=== PATIENT | female | born 1985 ===

== ENCOUNTER 2016-09-25 13:23 | Emergency (ER) | payer MEDICAID, OTHER ==
[2016-09-25 13:23] VITALS: BMI 25.4
[2016-09-25 13:30] VITALS: BP 98/64; PULSE 82; RESP 20; TEMP 97.4; O2SAT 98
--- NOTE | 2016-09-25 13:46 | C.PDOC ---
History Of Present Illness Patient is a 30 y/o female, 13 weeks , that presents to the ED for evaluation of constant back pain radiating to the abdomen that started 3 days ago. Pt states that pain is worse when sitting. Denies having this type of pain before, and denies taking any pain medications. Otherwise, denies any vaginal bleeding, vaginal discharge, dysuria, fever, chills, nausea, vomiting, or any other associated symptoms at this time. Time Seen by Provider: 09/25/16 13:46 Chief Complaint (Nursing): Abdominal Pain History Per: Patient History/Exam Limitations: no limitations Onset/Duration Of Symptoms: Days (3) Current Symptoms Are (Timing): Still Present Location Of Pain/Discomfort: Diffuse Radiation Of Pain To:: Back Quality Of Discomfort: "Pain" Associated Symptoms: Back Pain. denies: Fever, Chills, Nausea, Vomiting, Diarrhea, Loss Of Appetite, Chest Pain, Constipation, Urinary Symptoms Exacerbating Factors: None Alleviating Factors: None Recent travel outside of the [place]: No Additional History Per: Patient Abnormal Vaginal Bleeding: No Past Medical History Reviewed: Historical Data, Nursing Documentation, Vital Signs Vital Signs: Last Vital Signs Temp 97.4 F L 09/25/16 13:27 Pulse 82 09/25/16 13:27 Resp 20 09/25/16 15:04 BP 98/64 L 09/25/16 13:27 Pulse Ox 98 09/25/16 14:56 - [facility] Procedures DELIVERY OF PRODUCTS OF CONCEPTION, EXTERNAL APPROACH (12/15/15) MONITORING OF POC, CARDIAC RATE, TROLLEY WORKER APPROACH (12/15/15) REPAIR OB LACERATION NEC (06/27/14) Family History: States: Unknown Family Hx - Social History Hx Alcohol Use: No Hx Substance Use: No - Immunization History Hx Tetanus Toxoid Vaccination: No Hx Influenza Vaccination: No Hx Pneumococcal Vaccination: No Review Of Systems Except As Marked, All Systems Reviewed And Found Negative. Constitutional: Negative for: Fever, Chills Gastrointestinal: Positive for: Abdominal Pain. Negative for: Nausea, Vomiting , Diarrhea, Constipation Genitourinary: Negative for: Dysuria, Frequency, Incontinence, Hematuria, Vaginal Discharge, Vaginal Bleeding Musculoskeletal: Positive for: Back Pain Neurological: Negative for: Weakness, Numbness Physical Exam - Physical Exam Appears: Non-toxic, No Acute Distress Skin: Normal Color, Warm, Dry Head: Atraumatic, Normacephalic Eye(s): bilateral: Normal Inspection, EOMI Neck: Normal ROM, Supple Chest: Symmetrical, No Tenderness Cardiovascular: Rhythm Regular, No Murmur Respiratory: Normal Breath Sounds, No Rales, No Rhonchi, No Wheezing Gastrointestinal/Abdominal: Soft, Tenderness (non-focal, mildly diffuse), No Guarding, No Rebound Back: No CVA Tenderness, No Vertebral Tenderness, No Paraspinal Tenderness Extremity: Normal ROM Neurological/Psych: Oriented x3, Normal Speech, Normal Cognition ED Course And Treatment O2 Sat by Pulse Oximetry: 98 (on RA) Pulse Ox Interpretation: Normal Progress Note: Labs ordered and reviewed. Patient was given Tylenol in the ER. Medical Decision Making Medical Decision Making: Bedside ultrasound performed, showing positive movement, and heart rate of 167 bpm. pt appears well, no distress, benign exam disc plan for f/u w obgyn on , return if worse Disposition - Disposition Disposition: HOME/ ROUTINE Disposition Time: 14:56 Condition: GOOD Additional Instructions: Please follow up with your OBGYN doctor. Take tylenol as directed for pain. Return to the ER for any worsening symptoms or for any other concerns. Instructions: Abdominal Pain in (ED) Forms: Gen Discharge Inst Indonesian Print Language: SLOVENIAN - Clinical Impression Clinical Impression: Abdominal pain in - Scribe Statement The provider has reviewed the documentation as recorded by the Rosina Pham Provider Attestation: All medical record entries made by the Rosina were at my direction and personally dictated by me. I have reviewed the chart and agree that the record accurately reflects my personal performance of the history, physical exam, medical decision making, and the department course for this patient. I have also personally directed, reviewed, and agree with the discharge instructions and disposition.
[2016-09-25 14:40] LABS: RBC URINE 1 /hpf (0-3); URINE BACTERIA RARE (<OCC); URINE BILIRUBIN NEGATIVE (NEGATIVE); URINE BLOOD NEGATIVE (NEGATIVE); URINE COLOR Yellow (YELLOW); URINE GLUCOSE (UA) NORMAL (Normal); URINE KETONE TRACE mg/dL (NEGATIVE); URINE LEUKOCYTE ESTERASE TRACE Leu/uL (Negative); URINE PROTEIN NEGATIVE (NEGATIVE); URINE UROBILINOGEN NORMAL mg/dL (0.2-1.0); WBC URINE 4 /hpf (0-5)
== END 2016-09-25 15:04 | disposition home or self-care (01) ==
LOC: C.ER 13:23
DX: O26.91 Pregnancy related conditions, unspecified, first trimester (principal); Z3A.13 13 weeks gestation of pregnancy; R10.9 Unspecified abdominal pain

== ENCOUNTER 2017-02-25 19:41 | Emergency (ER) | payer MEDICAID, OTHER ==
[2017-02-25 19:57] VITALS: BMI 30.1
--- NOTE | 2017-02-25 20:19 | OBHP ---
Datetime: 02/25/2017 20:15 IP Adm Impression: , intrauterine Admit Comment, IP Provider: at 34+weeks jose with c/o ctxs started at 12 noon, irrg, 09/08,no vb, lof,+fm.no dysuria.pt was admitted [facility] for pylonephritis. obhx 3 x pmh de med pnv all nkda psh de soch den ve closed a/p at 34+weeks ctxs ua cont aureliano and efm ivf cont close observation Pelvic Type - PN: Adequate Extremities - PN: Normal Abdomen - PN: Normal Back - PN: Normal Breast - PN: Normal Lungs - PN: Normal Heart - PN: Normal Thyroid - PN: Normal Neurologic - PN: Normal HEENT - PN: Normal General - PN: Normal FHR - Baseline A Provider: 130 Contraction Comments Provider: irrg Comments, ACOG Physical Exam: gravid,non tender ext no edema,no calf ten ve closed EGA AdmitDate IP: 34.4 Vital Signs Provider: Reviewed; Within Normal Limits IP Chief Complaint: Uterine contractions NICHD Variability Prov Fetus A: Moderate 6-25bpm NICHD Accel Fetus A IP Provider: [id number] FHR Category Provider Fetus A: Category I Dilatation, Provider: 0 Effacement, Provider: 0 Station, Provider: -3 Genitourinary Exam: Normal DTRs - PN: Normal
[2017-02-25 20:23] LABS: URINE BACTERIA FEW (<OCC); URINE BILIRUBIN NEGATIVE (NEGATIVE); URINE BLOOD NEGATIVE (NEGATIVE); URINE COLOR Straw (YELLOW); URINE GLUCOSE (UA) NORMAL (Normal); URINE KETONE NEGATIVE (NEGATIVE); URINE LEUKOCYTE ESTERASE NEG Leu/uL (Negative); URINE PROTEIN NEGATIVE (NEGATIVE); URINE UROBILINOGEN NORMAL mg/dL (0.2-1.0); WBC URINE < 1 /hpf (0-5)
--- NOTE | 2017-02-25 20:40 | OBDCSUM ---
Datetime: 02/25/2017 20:39 Discharged to, Provider: Home Follow up at, Provider: tuesday Follow up in weeks, Provider: clinic Disch Activity Restrictions: No sexual activity; Nothing in vagina - [place], tampons, douche Discharge Comment, Provider: dc home ptl given po hyr f/u in clinic on tuesday Discharge Diagnosis Prov Other: 34week nst ctxs
--- NOTE | 2017-02-25 20:41 | OBHP ---
Datetime: 02/25/2017 20:15 Admit Comment, IP Provider: at 34+weeks jose with c/o ctxs started at 12 noon, irrg, 09/08,no vb, lof,+fm.no dysuria.pt was admitted [facility] for pylonephritis. obhx 3 x pmh de med pnv all nkda psh de soch den ve closed a/p at 34+weeks ctxs ua cont aureliano and efm ivf cont close observation 20.45 pt was seen feels better. ua neg dc home ptl given po hyr f/u in clinic on tuesday EGA AdmitDate IP: 34.4
[2017-02-26 02:25] VITALS: BP 100/59; PULSE 80; RESP 20; TEMP 98.2
== END 2017-02-25 21:35 | disposition home or self-care (01) ==
LOC: C.EROB 19:41
DX: O47.03 False labor before 37 completed weeks of gestation, third trimester (principal); Z3A.34 34 weeks gestation of pregnancy

== ENCOUNTER 2017-03-17 23:56 | Inpatient (IN) | payer MEDICAID ==
--- NOTE | 2017-03-18 00:05 | OBHP ---
Datetime: 03/07/2017 08:25 FHR - Baseline A Provider: 130 Contraction Comments Provider: irrg NICHD Variability Prov Fetus A: Moderate 6-25bpm NICHD Accel Fetus A IP Provider: 15X15 FHR Category Provider Fetus A: Category I Dilatation, Provider: 3 Effacement, Provider: 70 Station, Provider: -2 Datetime: 03/07/2017 08:23 Membranes, Provider: Intact Vital Signs Provider: Reviewed; Within Normal Limits NICHD Decel Fetus A IP Provider: None Datetime: 03/07/2017 00:01 Presentation-Admit: Vertex Gestation - Est Wks by US: 36.0 Datetime: 03/06/2017 15:50 Admit Comment, IP Provider: Patient is a 31 yo at 35 weeks and 6 days with LMP (06/28/2016) a nd an CAM (04/03/2017) by LMP, who presents with complaints of lower abdominal pressure and lower back pain and some vaginal spotting. Patient endorses movement and contractions and denies leakage of fluid and heavy vaginal bleeding. issues: Denies OB Hx: G1: 11/09/2008, male, , 6lbs, 39 weeks (+) G2: 06/28/2014, male, , 5lbs, 7oz, 37 weeks 2 days G3: 12/15/2015, male, , 5lbs, 7oz, 36 weeks 4 days G4: Current [employer] Hx: Menarche: 16 [place]: /3-4 days Denies hx of fibroids and ovarian cyst Denies hx of STDs and abnormal pap smear PMHx: Denies PSHx: Denies FHx: Denies Medications: PNV Allergies: NKDA Social Hx: Lives with and 3 sons. Denies hx of tobacco, illicit drugs and ETOH use VS: BP: 115/64, HR: 64 Physical Examination: See above A/P:31 yo at 35 weeks and 6 days with LMP (06/28/2016) and an CAM (04/03/2017), presents wit h complaints of lower abdominal pressure and lower back pain and some vaginal spotting. 1. Stable, Afebrile 2. EFM and [place] 3. Speculum exam: Negative pooling, possible false positive nitrazine test (Vaginal spotting), cer vicits 4. LR @125mls/hr 5. f/u UA 6. Further management to be determined by next cervical examination 7. Plans discussed with attending Shiv Reyes DO, PGY-1 Attending Note: patient seen, evaluated and examined by me with the Resident. I agree with the jayda jay as documented. Comments, ACOG Physical Exam: Gen: AAOx3, NAD Cardio: RRR, Normal S1, S2 Pulm: CTA bilaterally Abdomen: Soft, gravid, fundal height: 35 weeks Ext: No edema, no cyanosis and no clubbing SVE: 1-2cm/30%/-3 EFM: 140, + ACCELS, - DECELS TOCO: Irregular Datetime: 02/25/2017 20:15 EGA AdmitDate IP: 34.4
[2017-03-18] MEDS ORDERED: Penicillin G 5 Million Unit Vial IVPB ONE ×2 (00:14→00:57)
[2017-03-18] MEDS ORDERED: Lactated Ringer's 1,000 ML IV SCH (00:15)
--- NOTE | 2017-03-18 00:27 | OBADHP ---
Datetime: 03/18/2017 00:20 Admit Comment, IP Provider: chief complaint-contractions HPI at 37.4 wga with c/o spotting at 9.30pm and then contractions since 10 am.Patient denies nuasea, vomiting, chets pain, shortness of breath or loss of fluid course - [facility]; hx of celestone injection for episode of labor PMH denies PSH denies OBGYN HX ; NVDX3 Social hx deneis tobacco,alcohol or illicit drug use Exam see exam section A/P 31 y/o at 37.4 wga in labor.gbs unknown -admit -start pne G -monitor closely Pelvic Type - PN: Adequate Extremities - PN: Normal Abdomen - PN: Normal Back - PN: Normal Lungs - PN: Normal Heart - PN: Normal Neurologic - PN: Normal General - PN: Normal Contraction Comments Provider: irregular Gestation - Est Wks by US: 37.4 IP Hx Assessment: The History has been Reviewed and is Current Vital Signs Provider: Reviewed; Within Normal Limits IP Chief Complaint: Uterine contractions FHR Category Provider Fetus A: Category I Dilatation, Provider: 4 Effacement, Provider: 80 Station, Provider: -2 Genitourinary Exam: Normal DTRs - PN: Normal EGA AdmitDate IP: 37.3 IP Adm Impression: Term, intrauterine ; Active labor IP Admit Plan: Admit to unit; Initiate labor protocol Datetime: 03/07/2017 08:25 FHR - Baseline A Provider: 130 NICHD Variability Prov Fetus A: Moderate 6-25bpm NICHD Accel Fetus A IP Provider: [id number] Datetime: 03/07/2017 08:23 Membranes, Provider: Intact NICHD Decel Fetus A IP Provider: None Datetime: 03/07/2017 00:01 Presentation-Admit: Vertex Datetime: 03/06/2017 15:50 Comments, ACOG Physical Exam: Gen: AAOx3, NAD Cardio: RRR, Normal S1, S2 Pulm: CTA bilaterally Abdomen: Soft, gravid, fundal height: 35 weeks Ext: No edema, no cyanosis and no clubbing SVE: 1-2cm/30%/-3 EFM: 140, + ACCELS, - DECELS TOCO: Irregular Datetime: 02/25/2017 20:15 Breast - PN: Normal Thyroid - PN: Normal HEENT - PN: Normal
[2017-03-18 01:26] LABS: RBC URINE 1 /hpf (0-3); URINE BILIRUBIN NEGATIVE (NEGATIVE); URINE BLOOD 2+ (NEGATIVE); URINE COLOR Straw (YELLOW); URINE GLUCOSE (UA) NORMAL (Normal); URINE KETONE NEGATIVE (NEGATIVE); URINE LEUKOCYTE ESTERASE NEG Leu/uL (Negative); URINE PROTEIN NEGATIVE (NEGATIVE); URINE UROBILINOGEN NORMAL mg/dL (0.2-1.0)
[2017-03-18 01:28] LABS: BASO % 0.2 % (0.0-2.0); EOS % 0.5 % (0.0-4.0); HEMATOCRIT 30.1 % (34.0-47.0); LYMPH # 2.2 K/uL (1.0-4.3); LYMPH % 23.8 % (20.0-40.0); MEAN CELL VOLUME 78.3 fL (81.0-99.0); MEAN CORPUSCULAR HEMOGLOBIN 24.8 pg (27.0-31.0); MEAN CORPUSCULAR HGB CONC 31.6 g/dL (33.0-37.0); MEAN PLATELET VOLUME 8.8 fL (7.2-11.7); MONO # 0.8 K/uL (0.0-0.8); MONO % 8.1 % (0.0-10.0); NRBC % 0.4 % (0.0-2.0); RED CELL DISTRIBUTION WIDTH 15.6 % (11.5-14.5); WHITE BLOOD COUNT 9.4 K/uL (4.8-10.8)
[2017-03-18 01:33] LABS: ALKALINE PHOSPHATASE 289 U/L (38-126); ALT/SGPT 36 U/L (9-52); AST/SGOT 23 U/L (14-36); BILIRUBIN,TOTAL 0.5 mg/dL (0.2-1.3); BLOOD UREA NITROGEN 12 mg/dL (7-17); CALCIUM 7.9 mg/dl (8.6-10.4); CARBON DIOXIDE 20 mmol/L (22-30); CHLORIDE 102 mmol/L (98-107); GFR AFRICAN-AMERICAN > 60; GLUCOSE,RANDOM 102 mg/dL (65-105); POTASSIUM 3.9 mmol/L (3.6-5.2); SODIUM 130 mmol/L (132-148); TOTAL PROTEIN 6.7 g/dL (6.3-8.3)
[2017-03-18 01:53] LABS: ALB/GLOB RATIO 1.1 (1.0-2.1)
[2017-03-18] MEDS ORDERED: Oxycodone/Acetaminophen 5/325 mg Tab PO PRN (02:47)
--- NOTE | 2017-03-18 02:47 | OBDS ---
MATERNAL INFORMATION Estimated Blood Loss (ml): 200 Provider Comments: of a female infant .body and shoulders delivered without difrficulty.cord cla mped and cut.cord blood collected.placenta spontaneously delivered.perineum intact.fundus firm.patien t stable LABOR SUMMARY EDC: 04/04/2017 00:00 No. Babies in Womb: 1 Attempted: No LABOR INFORMATION Reason for Induction: Not Applicable Onset of Labor: 03/17/2017 22:00 Group B Beta Strep: Not Done Steroids Given: None Reason Steroids Not Administered: Not Applicable STAGES OF LABOR Stage 3 hrs: 0 Stage 3 min: 6 Total Time in Labor hrs: 4 Total Time in Labor min: 42 VAGINAL DELIVERY Episiotomy: None Laceration Extension: N/A Laceration Type: None Laceration Repair: Not Applicable Sponge Count Correct: Yes; Vaginal Sweep Performed Sharps Count Correct: Yes BABY A INFORMATION Infant Delivery Date/Time: 03/18/2017 02:36 SHOULDER DYSTOCIA BABY A Delivery Date/Time: 03/18/2017 02:36 PLACENTA INFORMATION BABY A Placenta Delivery Time : 03/18/2017 02:42 INFORMATION BABY A Gestational Status: Term IDENTIFICATION/MEDS BABY A ID Band Number: [id number] Sensor Number: [id number]
[2017-03-18] MEDS ORDERED: Oxytocin 30 UNIT 30 UNITS/500 ML BAG IV SCH (03:00)
[2017-03-19 08:02] LABS: BASO % 0.2 % (0.0-2.0); EOS # 0.1 K/uL (0.0-0.7); EOS % 0.7 % (0.0-4.0); HEMATOCRIT 28.4 % (34.0-47.0); LYMPH # 2.8 K/uL (1.0-4.3); LYMPH % 22.6 % (20.0-40.0); MEAN CELL VOLUME 77.5 fL (81.0-99.0); MEAN CORPUSCULAR HEMOGLOBIN 25.5 pg (27.0-31.0); MEAN CORPUSCULAR HGB CONC 32.8 g/dL (33.0-37.0); MEAN PLATELET VOLUME 8.2 fL (7.2-11.7); MONO % 7.7 % (0.0-10.0); NRBC % 0.1 % (0.0-2.0); RED CELL DISTRIBUTION WIDTH 15.9 % (11.5-14.5); WHITE BLOOD COUNT 12.5 K/uL (4.8-10.8)
[2017-03-20 08:46] VITALS: BP 103/62; PULSE 86; RESP 18; TEMP 98.2; O2SAT 97
[2017-03-20] MEDS ORDERED: Influenza Vaccine 60 mcg/0.5 mL SYR (4YR UP) IM ONE (12:00)
--- NOTE | 2017-03-20 12:00 | OBDCSUM ---
Datetime: 03/08/2017 07:51 Follow up at, Provider: [facility] Disch Instr Activity: Normal activity; May be up to bathroom; May be up for meals; May Shower Discharge Instructions, Provider: Routine instructions given Discharge Diagnosis, Provider: Term Delivered Follow up in weeks, Provider: 6 weeks Contraception discussed, Prov: Yes Disch Activity Restrictions: No exercising; No sexual activity; Nothing in vagina - [place], [place] Discharge Comment, Provider: Pelvic rest and nothing per vagina for 6 weeks F/u at [facility] in 6 weeks, OTC motrin and tylenol for pain control, Continue ambulation and hydration and breast feeding Please return to the hospital with any symptoms of fever, chills, abnormal/heavy vaginal bleeding, abnormal vaginal discharge. Discharge Diagnosis Prov Other: Discharge diagnosis: Contraception after Delivery: Undecided
--- NOTE | 2017-03-20 12:00 | OBPPN ---
Datetime: 03/20/2017 10:42 PP Pain Prov: Within normal limits PP Nausea Prov: Denies PP Flatus Prov: Yes PP BM Prov: Yes PP Heart Prov: Normal PP Lungs Prov: Normal PP Abdomen/Uterus Prov: Normal PP Lochia Prov: Normal PP Extremities Prov: Normal PP Progress Prov: Normal PP Comments Phys Exam Prov: Abdomen: Soft, non-tender, fundus is firm and under the umbilicus PP Impression Prov: Normal progression PP Plan Prov: Discharge PP Progress Note Prov: Patient was seen and examined at bedside. Patient reports that she is doing w ell and pain is well-controlled. Patient admits to mild lochia, passing flatus, urinating without dif ficulty, BM, tolerating diet and ambulating. Patient denies fever, chills, foul-smelling vaginal disc harge, chest pain, sob, palpitations, dizziness and calf tenderness. VS: BP: 103/62 HR: 86, Temp: 98.2 Physical examination: Gen: AAOx3, NAD Cardio: RRR, normal S1,S2 Pulm: CTA bilaterally Abdomen: Soft, non-tender, fundus is firm and below the umbilicus : Mild lochia Ext: No edema, no cyanosis and no clubbing Labs: 9.4>9.5/30.1<248, f/u am cbc O positive and rubella immune A/P: 31 yo at 37.4 weeks who is now , s/p PPD#2 1. Stable, Afebrile 2. Pain well-controlled 3. Encourage ambulation and hydration 4. Encourage breast feeding 5. Discharge home: Pelvic rest and nothing per vagina for 6 weeks, F[facility]u [facility] 6 weeks, OTC motrin and tylenol for pain control, continue ambulation and hydration and breast feedin g. 6. Plans discussed with attending Shiv Reyes DO, PGY-1 Patient examined.agree with resident exam, assessment and paln Vital Signs Provider PP: Reviewed; Within Normal Limits
--- NOTE | 2017-03-20 12:10 | OBPPN ---
Datetime: 03/19/2017 07:38 PP Progress Note Prov: Patient was seen and examined at bedside. Patient reports that she is doing w ell and pain is well-controlled. Patient admits to mild lochia, passing flatus, urinating without dif ficulty, tolerating diet and ambulating. Patient denies fever, chills, foul-smelling vaginal discharg e, BM, chest pain, sob, palpitations and calf tenderness. VS: f/u am VS Physical examination: Gen: AAOx3, NAD Cardio: RRR, normal S1,S2 Pulm: CTA bilaterally Abdomen: Soft, non-tender, fundus is firm and below the umbilicus : Mild lochia Ext: No edema, no cyanosis and no clubbing Labs: 9.4>9.5/30.1<248, f/u am cbc O positive and rubella immune A/P: 31 yo at 37.4 weeks who is now , s/p PPD#1 1. Stable, Afebrile 2. F/u am CBC 3. Pain is well-controlled: Motrin and percocet 4. Encourage ambulation and hydration 5. Encourage breast feeding 6. Continue routine post- care 7. Anticipate discharge tomorrow 8. Plans discuused with attending Shiv Reyes DO, PGY-1 Patient examined,agree with resident exam, assessment and plan
--- NOTE | 2017-03-21 15:53 | OBADHP ---
Datetime: 03/18/2017 00:20 EGA AdmitDate IP: 37.3
== END 2017-03-20 15:00 | disposition home or self-care (01) | DRG 775 ==
LOC: C.EROB 23:56 → C.4D 03-18 00:14 → C.4M 03-18 04:47
PROVIDERS: ADMIT Student in an Organized Health Care Education/Training Program; ATTEND Student in an Organized Health Care Education/Training Program
PROC: 10E0XZZ Delivery of Products of Conception, External Approach (ICD-10-PCS; principal; 2017-03-18)
DX: O80 Encounter for full-term uncomplicated delivery (principal); Z37.0 Single live birth; Z3A.37 37 weeks gestation of pregnancy